=== PATIENT | female | born 1970 | race African-American/Black ===

== ENCOUNTER 2016-08-31 06:51 | Emergency (ER) | payer OTHER ==
[~2016-08-31] VITALS: Ht 157.5 cm; Wt 81.6 kg
[2016-08-31 07:34] LABS: ABSOLUTE BASOPHIL COUNT 0 /CUMM (0.0-0.2); ABSOLUTE EOSINOPHIL COUNT 0 /CUMM (0.0-0.7); ABSOLUTE MONOCYTE COUNT 0.6 /CUMM (0.10-0.60); BASOPHIL % 0.4 % (0.0-2.0); EOSINOPHIL % 0.3 % (0-5); GRANULOCYTE % 63.4 % (42.2-75.2); HEMATOCRIT 34.2 % (37-47); MEAN CORPUSCULAR HGB 29.1 PG (27.0-31.0); MEAN CORPUSCULAR HGB CONC 33.6 G/DL (33.0-37.0); MEAN CORPUSCULAR VOLUME 86.6 FL (81.0-99.0); MEAN PLATELET VOLUME 11.6 FL (7.4-10.4); RBC DISTRIBUTION WIDTH 14.9 % (11.5-14.5); RED BLOOD CELL CT 3.96 /CUMM (4.20-5.40); WHITE BLOOD CELL COUNT 4.7 /CUMM (4.8-10.8)
--- NOTE | 2016-08-31 07:35 | ED CARDIAC/CP/PALPITATIONS ---
History of Present Illness General Chief Complaint: Chest Pain Stated Complaint: "CP SINCE LAST NIGHT" PER Source: patient, family, old records Exam Limitations: no limitations Vital Signs & Intake/Output Vital Signs & Intake/Output Vital Signs Date Time Temp Pulse Resp B/P B/P Pulse O2 O2 Flow FiO2 Mean Ox Delivery Rate 08/31 1024 96.8 82 20 97/57 98 Room Air Room Air 08/31 1012 98.7 08/31 0725 98 Room Air Room Air 08/31 0703 98.7 91 20 114/65 95 Room Air Allergies Coded Allergies: No Known Allergies (08/31/16) Reconcile Medications Ibuprofen 600 MG TABLET 1 TAB PO Q6PRN PRN pain, fever with food Metoclopramide HCl (Reglan) 10 MG TABLET 1 TAB PO 4 TIMES/DAY PRN nausea 30 minutes before meals and bedtime Ondansetron (Zofran Odt) 4 MG TAB.RAPDIS 1 TAB SL TID PRN nausea Triage Note: PT FROM HOME C/O CP. PT STATES CP BEGAN LAST NIGHT 2029 AFTER TAKING A MEDICATION CALLED "CO-ARINATE" FOR [place] FOR PREVENATIVE MEASURES WHEN TRAVELING OUT OF COUNTRY. PT STATES SHARP PRESSURE ON CHEST SINCE 2029 THAT HAS BEEN CONSTANT. PT STATES NAUSEA AND NECK BACK. DENIES BUSTAMANTE, BILATERAL ARM NUMBESS OR TINGLING, OR JAW PAIN . PT TO 5 FOR EKG AND WORKUP. AWAITING PROVIDER EVAL Triage Nurses Notes Reviewed? yes Onset: Evening Duration: hour(s):, constant, continues in ED Timing: recent history Quality/Severity: severe, sharp Location: substernal, central, epigastric Radiation: epigastric Activities at Onset: rest Prior Chest Pain/Card Workup: no prior chest pain, no prior cardiac workup Modifying Factors: Improves With: rest. Worsens With: coughing, movement, palpation. Nitro Today/Relief: no nitro taken today Aspirin Today: no aspirin today Associated Symptoms: fever/chills, nausea/vomiting, weakness LMP (ages 10-50): unknown : No Patient currently breastfeeds: No HPI: 1 day prior to admission patient complains of low-grade fever chills nausea vomiting nonproductive cough. 9 hours prior to admission she developed constant substernal chest discomfort scribe as sharp radiating to the epigastrium severe. She denies shortness of breath headache dysuria rash bleeding. Past History Travel History Traveled to [place] past 21 day No Medical History Any Pertinent Medical History? see below for history Blood Disorders: thrombocytopenia Surgical History Surgical History: non-contributory Psychosocial History What is your primary language Bengali Tobacco Use: Never used ETOH Use: denies use Illicit Drug Use: denies illicit drug use Family History Hx Contributory? No Review of Systems Review of Systems Constitutional: Reports: see HPI, chills, fever, malaise. EENTM: Reports: no symptoms. Respiratory: Reports: see HPI, cough. Denies: sputum production. Cardiovascular: Reports: see HPI, chest pain. GI: Reports: see HPI, abdominal pain, nausea, vomiting. Genitourinary: Reports: no symptoms. Musculoskeletal: Reports: no symptoms. Skin: Reports: no symptoms. Neurological/Psychological: Reports: no symptoms. Hematologic/Endocrine: Reports: no symptoms. Immunologic/Allergic: Reports: no symptoms. All Other Systems: Reviewed and Negative Physical Exam Physical Exam General Appearance: well developed/nourished, alert, awake, anxious, moderate distress Head: atraumatic, normal appearance Eyes: Bilateral: normal appearance, PERRL, EOMI. Ears, Nose, Throat: normal pharynx, normal ENT inspection Neck: normal inspection, supple, full range of motion, no midline tenderness Respiratory: normal breath sounds, chest non-tender, no respiratory distress, quiet respiration, lungs clear Cardiovascular: regular rate/rhythm, normal peripheral pulses, norml femoral pulses equa Peripheral Pulses: 4+ carotid (R), 4+ carotid (L) Gastrointestinal: normal bowel sounds, soft, non-tender, no organomegaly Back: normal inspection, normal range of motion, no vertebral tenderness Extremities: normal inspection, normal capillary refill, normal range of motion, no edema, no ligament instability Neurologic/Psych: no motor/sensory deficits, awake, alert, oriented x 3, normal gait, normal mood/affect, 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 Skin: intact, normal color, warm/dry Lymphatic: no anterior cervical adrian Core Measures ACS in differential dx? Yes ASA ordered for poss ACS? No-ACS ruled out Severe Sepsis Present: No Septic Shock Present: No Progress Differential Diagnosis: hypovolemia, musculoskeletal pain, pancreatitis, pneumonia, PUD/GERD Plan of Care: Orders Procedure Date/time Status TROPONIN LEVEL 08/31 1100 Complete Add-on Test (ER Only) 08/31 07 Active LIPASE 08/31 704 Complete AMYLASE 08/31 704 Complete TROPONIN LEVEL 09/01 703 Complete MAGNESIUM 09/01 703 Complete HUMAN BETA HCG SCREEN 09/01 703 Complete COMPREHENSIVE METABOLIC PANEL 09/01 703 Complete CHOLESTEROL 09/01 703 Complete CBC WITHOUT DIFFERENTIAL 09/01 703 Complete EKG 08/31 0653 Active Laboratory Tests 08/31/16 1101: Troponin I < 0.01 08/31/16 07: Anion Gap 11, Estimated GFR > 60, BUN/Creatinine Ratio 16.0, Glucose 81, Calcium 9.0, Magnesium 1.9, Total Bilirubin 1.3, AST 42 H, ALT 35, Alkaline Phosphatase 56, Troponin I < 0.01, Total Protein 6.9, Albumin 3.4 L, Globulin 3.5, Albumin/ Globulin Ratio 1.0 L, Cholesterol 103, Amylase 58, Lipase 47, Total Beta HCG NEGATIVE, CBC w Diff NO MAN DIFF REQ, RBC 3.96 L, MCV 86.6, MCH 29.1, RDW 14.9 H, MPV 11.6 H, Gran % 63.4, Lymphocytes % 22.4, Monocytes % 13.5 H, Eosinophils % 0.3, Basophils % 0.4, Absolute Granulocytes 3.0, Absolute Lymphocytes 1.0 L, Absolute Monocytes 0.6, Absolute Eosinophils 0, Absolute Basophils 0, PUBS MCHC 33.6 Diagnostic Imaging: Viewed by Me: Radiology Read. Discussed w/RAD: Radiology Read. 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
[2016-08-31 07:57] LABS: PLATELET COUNT 31 /CUMM (130-400)
--- NOTE | 2016-08-31 10:04 | RADIOLOGY REPORT ---
EXAMINATION: XR PORTABLE CHEST CLINICAL INFORMATION: Chest pain. COMPARISON: None. TECHNIQUE: Portable frontal view of the chest was obtained. FINDINGS: No significant abnormality is noted involving the heart, lungs, mediastinum, bony thorax or soft tissues. Monitoring leads project over the chest. IMPRESSION: No evidence of acute process.
[2016-08-31] MEDS ORDERED: IBUPROFEN600 M1 PO (12:04)
[2016-08-31] MEDS ORDERED: REGLAN10 M1 PO (12:04)
[2016-08-31] MEDS ORDERED: ZOFRAN ODT4 M1 SL (12:04)
[2016-08-31 12:26] VITALS: BP 104/60
== END 2016-08-31 12:38 ==
LOC: ERH 06:51
PROVIDERS: Emergency Medicine
DX: B34.9 Viral infection, unspecified (principal); D69.6 Thrombocytopenia, unspecified; R07.89 Other chest pain
CPT/HCPCS: 93005; 93010; 96365; 96375; J0131; J1885; J2405; J2765